=== PATIENT | female | born 1955 | race Caucasian/White ===

== ENCOUNTER 2021-01-21 14:50 | Outpatient (CLI) | payer MEDICARE, SELFPAY ==
--- NOTE | 2021-01-21 15:00 | XR_ITS ---
WS: [id number] LEFT HIP HISTORY: chronic left hip pain COMPARISON: None available. LEFT hip: No acute fracture or dislocation. Mild diffuse joint space narrowing with osteophytic ridgi ng around the acetabulum. Sclerotic changes on both sides of the inferior LEFT SI joint. XR/XR hip LT 2-3V wo/w pel* [id number] IMPRESSION: 1. No hip fracture. 2. Mild LEFT hip joint osteoarthritis.
== END 2021-01-21 14:51 | disposition home or self-care (01) ==
PROVIDERS: PCP Family Medicine; Visit Provider Family Medicine
DX: G89.29 Other chronic pain (principal); M16.12 Unilateral primary osteoarthritis, left hip
CPT/HCPCS: 73502

== ENCOUNTER 2021-03-18 12:33 | Outpatient (CLI) | payer MEDICARE, SELFPAY ==
--- NOTE | 2021-03-18 13:00 | MM_ITS ---
WS: [id number] BILATERAL SCREENING MAMMOGRAM WITH AMANDA DISPLACEMENT VIEWS. CAD PERFORMED. HISTORY: screening mammogram COMPARISON: None available. Bilateral craniocaudal and mediolateral like views are performed. Amanda displacement views in CC and MLO projection also performed. Breasts composition: There are scattered areas of fibroglandular density. Retropectoral implants are intact. There are bilateral benign calcifications within each breast. MM/[place] [id number] IMPRESSION: BI-RADS: 2-Benign FOLLOW-UP: 1 Year Follow-up
== END 2021-03-18 12:34 | disposition home or self-care (01) ==
LOC: RADSHAW 12:38
PROVIDERS: PCP Family Medicine; Visit Provider Family Medicine
DX: Z12.31 Encounter for screening mammogram for malignant neoplasm of breast (principal)
CPT/HCPCS: 77067

== ENCOUNTER 2021-03-26 16:04 | Emergency (ER) | payer MEDICARE, SELFPAY ==
[2021-03-26 16:34] VITALS: BP 166/87; PULSE 75; RESP 16; TEMP 36.7; O2SAT 97; BMI 23.9
--- NOTE | 2021-03-26 17:24 | ECG_ITS ---
[facility] Test Date: 2021-03-26 Pat Name: Shanon Pisano Department: Room: Gender: Female [address] [employer]: : 1955 Requested By: Anibal Nunez Order Number: [id number] Reading MD: JEN WAGNER Measurements Intervals [place] Rate: 69 P: 157 WV: 124 QRS: 178 QRSD: 85 T: 150 QT: 376 QTc: 403 Interpretive Statements ECTOPIC ATRIAL RHYTHM POSSIBLE RIGHT VENTRICULAR HYPERTROPHY [SOME/ALL OF: PROMINENT R IN V1, LATE TRANSITION, RAD, BENITO, SSS] INTERPRETATION BASED ON A DEFAULT AGE OF 40 YEARS No previous ECG available for comparison Electronically Signed On 03-28-2021 12:54:47 SOLAR PHOTOVOLTAIC DESIGNER by JEN WAGNER [id number]
--- NOTE | 2021-03-26 17:24 | CTR_ITS ---
PROCEDURE INFORMATION: Exam: CT Head Without Contrast Exam date and time: 03/26/2021 5:24 PM Age: 65 years old Clinical indication: Patient HX: C/O sudden onset dizziness; Additional info: Headache, acute onset, dizzieness TECHNIQUE: Imaging protocol: Computed tomography of the head without contrast. Total images: 210 Radiation optimization: All CT scans at this facility use at least one of these dose optimization techniques: automated exposure control; mA and/or kV adjustment per patient size (includes targeted exams where dose is matched to clinical indication); or iterative reconstruction. COMPARISON: No relevant prior studies available. RADIATION DOSE METRICS: Total DLP (mGy-cm): 880.46 FINDINGS: Brain: No evidence of active or acute intracranial pathologic process, hemorrhage, or trauma. No visible evidence of diffuse cerebral edema or generalized demyelination. No hyperdense MCA or insular ribbon sign. No mass effect. No midline shift. Cerebral ventricles: No ventriculomegaly. Paranasal sinuses: Visualized sinuses are unremarkable. No fluid levels. Mastoid air cells: Visualized mastoid air cells are well aerated. Bones/joints: Unremarkable. No acute fracture. Soft tissues: Unremarkable. CT/CT head wo con* [id number] IMPRESSION: No evidence of active or acute intracranial pathologic process, hemorrhage, or trauma. Radiation Dose CTDIVOL = (mGy): DLP = 880.46 (mGy-cm)
--- NOTE | 2021-03-26 17:33 | ED_ITS ---
Documented by User: AMIRAH Hale 03/26/21 21:15 HPI - Dizziness General: Chief Complaint: Dizziness Stated Complaint: DIZZY/HIGH BP/HEADACHE Time Seen by Provider: 03/26/21 17:18 History of Present Illness: HPI Narrative: Patient presents with dizziness and increased blood pressure that started today. Patient she had a sinus infection recently and finished antibiotics. Patient says that she standing kitchen sink and felt kind of dizzy sit down the table then she is felt a little bit detached from her body for little bit. She went and sat in the recliner for an hour or so. Still felt dizzy with standing up. She states her blood pressures for the last many years been about 90/60 today it went up to about 160/90. Patient states that she normally does not have headaches and she has 1 on the left side was a lot stronger earlier today but now feels much better she has neck pain and that is chronic due to having neck surgery and does have a plate for her cervical spine. She denies any weakness. She does have slight abdominal discomfort consistent with her history of colitis. Patient also does have history of vertigo but is been a while since she has had an attack. MD elicited complaint: lightheadedness Pertinent past history: other (Recent sinus infection) Onset (ago): hour(s) Timing: sudden onset Severity: mild Description: room spinning and lightheadedness Context: recent illness History of similar symptoms: No Exacerbating factors: movement/ambulation Relieving factors: remaining still Associated symptoms: Reports no associated symptoms and headache(s); Denies chest pain, chills, nausea, nasal congestion or vomiting Associated neuro symptoms: Reports no associated symptoms Review of Systems Const: Denies: fever(s), chills or body aches Eyes: Denies: change in vision or blurry vision ENMT: Denies: throat pain or nasal congestion Card: Denies: chest pain or dyspnea on exertion Resp: Denies: dyspnea, productive cough or non-productive cough GI: Reports: abdominal pain; Denies: nausea or vomiting Musc: Denies: extremity pain Skin/Breast: Denies: rash Neuro: Reports: headache(s) and dizziness Psych: Denies: anxiety or depression Ozzy/Lymph: Denies: easy bruising PFSH ED PFSH: Medical History Irritable bowel syndrome (IBS) Osteoporosis Surgical History History of breast augmentation History of carpal tunnel release bilateral History of hysterectomy leaving cervix intact TA History of neck surgery Family History Brother Cancer Mother Dementia Social History Smoking and tobacco status: former smoker Second hand smoke exposure: No Alcohol intake: current Alcohol intake frequency: few times a week Alcohol type: beer Desire information about alcohol rehabilitation?: No Desire information about substance/drug rehabilitation?: No Physical Exam Const: COMMON NORMALS: no acute distress, average body habitus and patient oriented x3 HENMT: COMMON NORMALS: normocephalic HEAD & SCALP: normal to inspection and normocephalic FACE & SINUS: normal facial exam Eye: COMMON NORMALS: conjunctivae normal GENERAL EYE: appearance normal, both eyes and all related structures CONJUNCTIVA: Yes conjunctivae normal Neck/C-Spine: COMMON NORMALS: no JVD Chest: COMMONS NORMALS: normal inspection of the chest Resp: COMMON NORMALS: normal respiratory effort and clear to auscultation bilaterally AUSCULTATION: clear to auscultation bilaterally Cardio: COMMON NORMALS: no JVD, regular rate and regular rhythm RATE: regular rate RHYTHM: regular rhythm GI: COMMON NORMALS: Normal to inspection, nondistended, normoactive bowel sounds present Extremity: COMMON NORMALS: normal to inspection and full ROM Neuro: COMMON NORMALS: patient oriented x3, CN's II-XII intact bilaterally and moves all extremities Course Vital Signs: Vital signs: Vital Signs Temperature 98.0 F 03/26/21 16:34 Pulse Rate 68 03/26/21 21:25 Respiratory Rate 18 03/26/21 21:25 Blood Pressure 151/69 03/26/21 21:25 Pulse Oximetry 97 03/26/21 21:25 MDM - Dizziness MDM Narrative: Medical decision making narrative: Patient presents with episode of lightheadedness today. And it continued throughout the afternoon. Patient was able ambulate without difficulty. CT the head negative laboratory studies were negative including cardiac enzyme. Patient given a liter of fluids. UA was negative. Discussed case Dr. Salvador. Patient was ambulated without difficulty, was lightheaded on initial rising from the bed after laying there for 3 hours but did okay throughout the walk without any unsteadiness. Patient was given clonidine to help bring blood pressure down last blood pressure 130/83. Patient given instructions how to monitor blood pressure how to take medication follow-up primary care provider. Lab Data: Labs: Lab Results 03/26/21 03/26/21 03/26/21 18:20 18:20 18:20 WBC 9.8 10^3/uL 10^3/ uL (4.0-10.0) RBC 4.51 10^6/uL 10^6 /uL (4.1-5.3) Hgb 14.7 g/dL g/dL (11.5-15.3) Hct 44.0 % % (37.0-47.0) MCV 97.6 fl fl (81-99) MCH 32.6 pg pg (28.0-34.0) MCHC 33.4 g/dL g/dL (30.0-36.0) RDW 11.7 % L % (12.1-15.1) Plt Count 300 10^3/cmm 10^3 /cmm (130-400) MPV 10.0 fL fL (7.4-10.4) Neut % (Auto) 64.4 % % Lymph % (Auto) 23.4 % % [place] % (Auto) 7.6 % % Eos % (Auto) 3.9 % % Baso % (Auto) 0.4 % % Neut # (Auto) 6.34 10^3/uL 10^3 /uL (1.8-7.7) Lymph # (Auto) 2.3 10^3/uL 10^3/ uL (0.8-4.8) [place] # (Auto) 0.8 10^3/uL 10^3/ uL (0.2-0.9) Eos # (Auto) 0.4 10^3/uL 10^3/ uL (0.0-0.8) Baso # (Auto) 0.0 10^3/uL 10^3/ uL (0.0-0.1) Nucleated RBC % (a uto) 0 % % Nucleated RBCs # 0.0 /100WBC /100W BC PT 14.60 SECONDS SEC ONDS (12.1-14.9) INR 1.10 (0.8-1.2) Sodium 139 mmol/L mmol/L (136-145) Potassium 4.0 mmol/L mmol/L (3.5-5.1) Chloride 102 mmol/L mmol/L (98-107) Carbon Dioxide 23 mmol/L mmol/L (22-29) Anion Gap 18.0 (5-19) BUN 20 mg/dL mg/dL (8-23) Creatinine 0.7 mg/dL mg/dL (0.5-0.9) GFR Calculation 83.7 mL/min L mL/ min (90-130) Glucose 81 mg/dL mg/dL (65-115) Calculated Osmolal ity 290 mOsm/kg mOsm/ kg (285-295) Calcium 9.0 mg/dL mg/dL (8.5-10.5) Total Bilirubin 0.2 mg/dL mg/dL (0.15-1.2) AST 17 U/L U/L (0-32) ALT 15 U/L U/L (0-33) Alkaline Phosphata se 72 IU/L IU/L (35-105) Troponin T Baselin e Troponin T 120 Min [place] Troponin T Total Protein 6.4 g/dL L g/dL (6.6-8.7) Albumin 4.4 g/dL g/dL (3.5-5.2) Globulin 2.0 g/dL g/dL (1.3-4.6) Lipase 44 U/L U/L (13-60) Urine Color Urine Appearance Urine pH Ur Specific Gravit y Urine Protein Urine Glucose (UA) Urine Ketones Urine Blood Urine Nitrate Urine Bilirubin Urine Urobilinogen Ur Leukocyte Gisela ase 03/26/21 03/26/21 03/26/21 18:20 18:34 20:12 WBC RBC Hgb Hct MCV MCH MCHC RDW Plt Count MPV Neut % (Auto) Lymph % (Auto) [place] % (Auto) Eos % (Auto) Baso % (Auto) Neut # (Auto) Lymph # (Auto) [place] # (Auto) Eos # (Auto) Baso # (Auto) Nucleated RBC % (a uto) Nucleated RBCs # PT INR Sodium Potassium Chloride Carbon Dioxide Anion Gap BUN Creatinine GFR Calculation Glucose Calculated Osmolal ity Calcium Total Bilirubin AST ALT Alkaline Phosphata se Troponin T Baselin e 7 ng/L ng/L (0-10) Troponin T 120 Min [place] 6.00 ng/L ng/L (0-10) Delta Troponin T -1.00 ABS# L ABS# (0-10) Total Protein Albumin Globulin Lipase Urine Color Yellow (Yellow) Urine Appearance Clear (CLEAR) Urine pH 6 (5-7) Ur Specific Gravit y 1.005 (1.005-1.030) Urine Protein Neg (Negative) Urine Glucose (UA) Norm (Normal) Urine Ketones Negative (Negative) Urine Blood Neg (Negative) Urine Nitrate Negative (Negative) Urine Bilirubin Neg (Negative) Urine Urobilinogen Norm mg/dL mg/dL (Negative) Ur Leukocyte Gisela ase Negative (Negative) Discharge Plan Discharge Patient Disposition: Home Clinical Impression: Light-headed feeling Hypertension Qualifiers: Hypertension type: primary hypertension Qualified Code(s): I10 - Essential (primary) hypertension Condition: Stable Prescriptions: New lisinopril 5 mg tablet 5 mg PO DAILY Qty: 14 RF: 0 No Action omeprazole 20 mg capsule,delayed release(DR/EC) 20 mg PO DAILY Qty: 90 RF: 0 doxycycline hyclate 100 mg capsule 100 mg PO BID 7 Days Qty: 14 RF: 0 meloxicam [Mobic] 15 mg tablet 15 mg PO DAILY 90 Days Qty: 90 RF: 0 Discharge Orders: Discharge ED (Routine); Ordered 03/26/21 Ordered By: Anibal Nunez Referrals: Edith Davila DO [Primary Care Provider] - Discharge Diet: Usual diet Discharge Activity: Increase activity as tolerated Patient Instructions: Chronic Hypertension (ED) Activity Restrictions/Additional Instructions: Follow-up with medical provider as directed. Take medications as prescribed. Return to the ER or your medical provider if condition worsens. Please read and understand discharge instructions. If any questions ask please. I suggest that you check your blood pressure twice daily before starting medication for the next 2 to 3 days and do your blood pressure checks at same time every day. If blood pressure is elevated above 140/90 I recommend that you go and take your medication and continue take your blood pressures and see your primary care prov ider in the next week or 2. Coding Level of Care Code ED Chair for Yag Fwd Exam Comprehensive Documented by User: Juan Mondragon MD 03/31/21 00:35 HPI - Dizziness General: Chief Complaint: Dizziness Stated Complaint: DIZZY/HIGH BP/HEADACHE Time Seen by Provider: 03/26/21 17:18 PFS ED PFSH: Medical History Irritable bowel syndrome (IBS) Osteoporosis Surgical History History of breast augmentation History of carpal tunnel release bilateral History of hysterectomy leaving cervix intact TA History of neck surgery Family History Brother Cancer Mother Dementia Social History Smoking and tobacco status: former smoker Second hand smoke exposure: No Alcohol intake: current Alcohol intake frequency: few times a week Alcohol type: beer Desire information about alcohol rehabilitation?: No Desire information about substance/drug rehabilitation?: No Course Vital Signs: Vital signs: Vital Signs Temperature 98.0 F 03/26/21 16:34 Pulse Rate 68 03/26/21 21:25 Respiratory Rate 18 03/26/21 21:25 Blood Pressure 151/69 03/26/21 21:25 Pulse Oximetry 97 03/26/21 21:25 MDM - Dizziness MDM Narrative: Medical decision making narrative: I discussed this case with Anibal Nunez TELEMETRY RN. I evaluated the patient just prior to discharge, she did have improvement in symptoms. I have reviewed documentation, labs, imaging. Juan Mondragon MD Emergency Medicine Lab Data: Labs: Lab Results 03/26/21 03/26/21 03/26/21 18:20 18:20 18:20 WBC 9.8 10^3/uL 10^3/ uL (4.0-10.0) RBC 4.51 10^6/uL 10^6 /uL (4.1-5.3) Hgb 14.7 g/dL g/dL (11.5-15.3) Hct 44.0 % % (37.0-47.0) MCV 97.6 fl fl (81-99) MCH 32.6 pg pg (28.0-34.0) MCHC 33.4 g/dL g/dL (30.0-36.0) RDW 11.7 % L % (12.1-15.1) Plt Count 300 10^3/cmm 10^3 /cmm (130-400) MPV 10.0 fL fL (7.4-10.4) Neut % (Auto) 64.4 % % Lymph % (Auto) 23.4 % % [place] % (Auto) 7.6 % % Eos % (Auto) 3.9 % % Baso % (Auto) 0.4 % % Neut # (Auto) 6.34 10^3/uL 10^3 /uL (1.8-7.7) Lymph # (Auto) 2.3 10^3/uL 10^3/ uL (0.8-4.8) [place] # (Auto) 0.8 10^3/uL 10^3/ uL (0.2-0.9) Eos # (Auto) 0.4 10^3/uL 10^3/ uL (0.0-0.8) Baso # (Auto) 0.0 10^3/uL 10^3/ uL (0.0-0.1) Nucleated RBC % (a uto) 0 % % Nucleated RBCs # 0.0 /100WBC /100W BC PT 14.60 SECONDS SEC ONDS (12.1-14.9) INR 1.10 (0.8-1.2) Sodium 139 mmol/L mmol/L (136-145) Potassium 4.0 mmol/L mmol/L (3.5-5.1) Chloride 102 mmol/L mmol/L (98-107) Carbon Dioxide 23 mmol/L mmol/L (22-29) Anion Gap 18.0 (5-19) BUN 20 mg/dL mg/dL (8-23) Creatinine 0.7 mg/dL mg/dL (0.5-0.9) GFR Calculation 83.7 mL/min L mL/ min (90-130) Glucose 81 mg/dL mg/dL (65-115) Calculated Osmolal ity 290 mOsm/kg mOsm/ kg (285-295) Calcium 9.0 mg/dL mg/dL (8.5-10.5) Total Bilirubin 0.2 mg/dL mg/dL (0.15-1.2) AST 17 U/L U/L (0-32) ALT 15 U/L U/L (0-33) Alkaline Phosphata se 72 IU/L IU/L (35-105) Troponin T Baselin e Troponin T 120 Min [place] Troponin T Total Protein 6.4 g/dL L g/dL (6.6-8.7) Albumin 4.4 g/dL g/dL (3.5-5.2) Globulin 2.0 g/dL g/dL (1.3-4.6) Lipase 44 U/L U/L (13-60) Urine Color Urine Appearance Urine pH Ur Specific Gravit y Urine Protein Urine Glucose (UA) Urine Ketones Urine Blood Urine Nitrate Urine Bilirubin Urine Urobilinogen Ur Leukocyte Gisela ase 03/26/21 03/26/21 03/26/21 18:20 18:34 20:12 WBC RBC Hgb Hct MCV MCH MCHC RDW Plt Count MPV Neut % (Auto) Lymph % (Auto) [place] % (Auto) Eos % (Auto) Baso % (Auto) Neut # (Auto) Lymph # (Auto) [place] # (Auto) Eos # (Auto) Baso # (Auto) Nucleated RBC % (a uto) Nucleated RBCs # PT INR Sodium Potassium Chloride Carbon Dioxide Anion Gap BUN Creatinine GFR Calculation Glucose Calculated Osmolal ity Calcium Total Bilirubin AST ALT Alkaline Phosphata se Troponin T Baselin e 7 ng/L ng/L (0-10) Troponin T 120 Min [place] 6.00 ng/L ng/L (0-10) Delta Troponin T -1.00 ABS# L ABS# (0-10) Total Protein Albumin Globulin Lipase Urine Color Yellow (Yellow) Urine Appearance Clear (CLEAR) Urine pH 6 (5-7) Ur Specific Gravit y 1.005 (1.005-1.030) Urine Protein Neg (Negative) Urine Glucose (UA) Norm (Normal) Urine Ketones Negative (Negative) Urine Blood Neg (Negative) Urine Nitrate Negative (Negative) Urine Bilirubin Neg (Negative) Urine Urobilinogen Norm mg/dL mg/dL (Negative) Ur Leukocyte Gisela ase Negative (Negative) Discharge Plan Discharge Patient Disposition: Home Clinical Impression: Light-headed feeling Hypertension Qualifiers: Hypertension type: primary hypertension Qualified Code(s): I10 - Essential (primary) hypertension Condition: Stable Prescriptions: New lisinopril 5 mg tablet 5 mg PO DAILY Qty: 14 RF: 0 No Action omeprazole 20 mg capsule,delayed release(DR/EC) 20 mg PO DAILY Qty: 90 RF: 0 doxycycline hyclate 100 mg capsule 100 mg PO BID 7 Days Qty: 14 RF: 0 meloxicam [Mobic] 15 mg tablet 15 mg PO DAILY 90 Days Qty: 90 RF: 0 Discharge Orders: Discharge ED (Routine); Ordered 03/26/21 Ordered By: Anibal Nunez Referrals: Edith Davila DO [Primary Care Provider] - Discharge Diet: Usual diet Discharge Activity: Increase activity as tolerated Patient Instructions: Chronic Hypertension (ED) Activity Restrictions/Additional Instructions: Follow-up with medical provider as directed. Take medications as prescribed. Return to the ER or your medical provider if condition worsens. Please read and understand discharge instructions. If any questions ask please. I suggest that you check your blood pressure twice daily before starting medication for the next 2 to 3 days and do your blood pressure checks at same time every day. If blood pressure is elevated above 140/90 I recommend that you go and take your medication and continue take your blood pressures and see your primary care provider in the next week or 2. Coding Level of Care Code ED Chair for Lupillo Fwkenia Exam Comprehensive
[2021-03-26] MEDS: sodium chloride 0.9% 1,000 ML 999 ML IV (18:31)
[2021-03-26 18:35] LABS: Basophils % 0.4 %; Eosinophils # 0.4 10^3/uL (0.0-0.8); Eosinophils % 3.9 %; Hemoglobin 14.7 g/dL (11.5-15.3); Lymphocytes # 2.3 10^3/uL (0.8-4.8); Lymphocytes % 23.4 %; Mean Corpuscular HGB Conc 33.4 g/dL (30.0-36.0); Mean Corpuscular Hemoglobin 32.6 pg (28.0-34.0); Mean Corpuscular Volume 97.6 fl (81-99); Monocytes # 0.8 10^3/uL (0.2-0.9); Monocytes % 7.6 %; Neutrophils # 6.34 10^3/uL (1.8-7.7); Neutrophils % 64.4 %; Nucleated Red Blood Cells % 0 %; Platelet Count 300 10^3/cmm (130-400); Red Blood Count 4.51 10^6/uL (4.1-5.3); Red Cell Distribution Width 11.7 % (12.1-15.1); White Blood Count 9.8 10^3/uL (4.0-10.0)
[2021-03-26 18:51] LABS: Alanine Aminotransferase 15 U/L (0-33); Albumin Level 4.4 g/dL (3.5-5.2); Alkaline Phosphatase 72 IU/L (35-105); Aspartate Amino Transferase 17 U/L (0-32); Blood Urea Nitrogen 20 mg/dL (8-23); Carbon Dioxide 23 mmol/L (22-29); Chloride 102 mmol/L (98-107); Creatinine Clr Calc Pharmacy 61.0807; Glomerular Filtration Rate 83.7 mL/min (90-130); Glucose 81 mg/dL (65-115); Lipase 44 U/L (13-60); Osmolality Calculated 290 mOsm/kg (285-295); Sodium 139 mmol/L (136-145); Total Bilirubin 0.2 mg/dL (0.15-1.2); Total Protein 6.4 g/dL (6.6-8.7)
[2021-03-26 19:02] LABS: Troponin(5th) Baseline 7 ng/L (0-10)
[2021-03-26 19:35] LABS: Add Urine Microscopic? NO; Charge for UA Resulting for Rev
[2021-03-26 19:42] LABS: Bilirubin Urine Neg (Negative); Blood Urine Neg (Negative); Glucose Urine UA Norm (Normal); Ketones Urine Negative (Negative); Leukocyte Esterase Urine Negative (Negative); Nitrate Urine Negative (Negative); Protein Urine Neg (Negative); Specific Gravity, Urine 1.005 (1.005-1.030); Urine Appearance Clear (CLEAR); Urine Color Yellow (Yellow); Urobilinogen Urine Norm (Negative); pH Urine 6 (5-7)
[2021-03-26 20:04] VITALS: BP 158/98
[2021-03-26] MEDS: cloNIDine 0.1 mg Tablet PO (20:04)
[2021-03-26 20:06] VITALS: BP 158/98; PULSE 95; RESP 14; O2SAT 97
--- NOTE | 2021-03-26 21:14 | PC.NURSE ---
Ambulated pt approx 40 feet per provider request. Pt admitted to still being light headed but took her time. Pt did not get unsteady on her feet.
[2021-03-26 21:25] VITALS: BP 151/69; PULSE 68; RESP 18; O2SAT 97
== END 2021-03-26 21:27 | disposition home or self-care (01) ==
PROVIDERS: Emergency Provider Nurse Practitioner Family; PCP Family Medicine
DX: R42 Dizziness and giddiness (principal); I10 Essential (primary) hypertension; Z87.891 Personal history of nicotine dependence
CPT/HCPCS: 36415; 70450; 80053; 81003; 83690; 84484; 85025; 85610; 93005; 96360; 99284; J7030

== ENCOUNTER → 2021-04-04 13:21 | Outpatient (BNVA) | payer MEDICARE, SELFPAY | PROVIDERS: PCP Family Medicine; Visit Provider Nurse Practitioner | DX: Z20.822 Contact with and (suspected) exposure to COVID-19 (principal); R50.9 Fever, unspecified | CPT/HCPCS: 87635 ==

== ENCOUNTER 2021-04-08 16:12 | Outpatient (CLI) | payer MEDICARE, SELFPAY ==
[2021-04-08 16:18] VITALS: BP 118/73; PULSE 67; RESP 20; TEMP 36.8; O2SAT 92
[2021-04-08 17:00] VITALS: BP 104/71; PULSE 86; RESP 18; TEMP 36.8; O2SAT 95
[2021-04-08 17:26] VITALS: BP 111/71; PULSE 82; RESP 16; TEMP 36.9; O2SAT 94; BMI 23.7
== END 2021-04-08 16:13 | disposition home or self-care (01) ==
LOC: OPS 16:16
PROVIDERS: PCP Family Medicine; Visit Provider Nurse Practitioner
DX: U07.1 COVID-19 (principal)
CPT/HCPCS: 96365

== ENCOUNTER → 2021-07-15 11:01 | Outpatient (BNVA) | payer MEDICARE, SELFPAY | PROVIDERS: PCP Family Medicine; Visit Provider Surgery | DX: Z20.822 Contact with and (suspected) exposure to COVID-19 (principal) | CPT/HCPCS: 87635 ==

== ENCOUNTER 2021-07-20 07:45 | Day surgery (SDC) | payer MEDICARE, SELFPAY ==
[2021-07-19 10:20] VITALS: BMI 24.4
--- NOTE | 2021-07-20 08:04 | ANES.PREANE2 ---
Pre-Anesthetic Assessment Height/Weight: Height 1.6 m Weight 62.596 kg Operation Date: 07/20/21 09:15 Proposed Procedures p EGD 01751/col 86481/R11.10 vomiting/K59.0 constipation(Not Applicable) - Jose G Davis MD s Colonoscopy(Not Applicable) - Jose G Davis MD Familial anesthetic complications: None Was Beta Gagan taken within 24 hours: N/A Was Clonidine taken within 24 hours: N/A Social No alcohol (Occasional/social) and No tobacco (h/o smoking) Exam alert, oriented x 3, clear to auscultation bilaterally and regular rate & rhythm Airway Submandibular: within normal limits Cervical ROM: within normal limits Mallampati: Class II Dentition: full Pulmonary Chronic Obstructive Pulmonary Disease GI gastritis Musc/skel Osteoarthritis/DJD Anesthetic Plan ASA status: 2 Anesthesia: MAC Medications/Allergies Home Medications Medication Instructions Recorded Confirmed Last Taken Type loratadine 10 mg tablet (Allergy 10 mg PO DAILY 04/01/21 07/19/21 Unknown History Relief (loratadine)) albuterol sulfate 90 mcg/actuation 2 puff INHALATION Q6H PRN #8.5 g 05/13/21 07/19/21 Unknown Rx aerosol inhaler (ProAir HFA) pantoprazole 40 mg tablet,delayed 40 mg PO DAILY #90 tab 05/13/21 07/19/21 Unknown Rx release (Protonix) lactulose 10 gram/15 mL oral 15 ml PO BID 7 Days #210 ml 06/21/21 07/19/21 Unknown Rx solution meloxicam 15 mg tablet 15 mg PO BEDTIME 07/19/21 07/19/21 Unknown History Allergies Allergy/AdvReac Type Severity Reaction Status Date / Time clindamycin Allergy ADR-Itching Verified 06/21/21 09:52 meperidine [From Demerol] Allergy ADR-Nausea Verified 06/21/21 09:52 Penicillins Allergy ALGY-Rash Verified 06/21/21 09:52 Sulfa (Sulfonamide Allergy ALGY-Rash Verified 06/21/21 09:52 Antibiotics) [facility] Anesthesia Medical History Irritable bowel syndrome (IBS) Osteoporosis Surgical History History of breast augmentation History of carpal tunnel release bilateral History of colonoscopy with polypectomy 2007,2014 History of esophagogastroduodenoscopy (EGD) 2014 History of hysterectomy leaving cervix intact TA History of neck surgery History of shoulder surgery left Family History Brother Cancer Mother Dementia Social History Smoking and tobacco status: former smoker Second hand smoke exposure: No Alcohol intake: current Alcohol intake frequency: few times a week Alcohol type: beer Desire information about alcohol rehabilitation?: No Desire information about substance/drug rehabilitation?: No Data Anesthesia Cardiac Studies: No Data to Display
[2021-07-20 08:33] VITALS: BP 136/92; PULSE 76; RESP 18; TEMP 36.1; O2SAT 98
[2021-07-20] MEDS: sodium chloride 0.9% 1,000 ML 30 ML IV (08:41)
--- NOTE | 2021-07-20 08:56 | W.PM.OPSFHP ---
Same Day Surgery H&P Indication for Procedure/HPI DATE OF PROCEDURE: July 20, 2021 CHIEF COMPLAINT/INDICATIONFOR SURGICAL PROCEDURE: colonoscopy PREOP DIAGNOSIS: diagnostic PLANNED PROCEDURE: Operation Date: 07/20/21 09:15 Proposed Procedures p EGD 50127/col 32142/R11.10 vomiting/K59.0 constipation(Not Applicable) - Jose G Davis MD s Colonoscopy(Not Applicable) - Jose G Davis MD Medications/Allergies* Home Medications Medication Instructions Recorded Confirmed Type loratadine 10 mg tablet (Allergy 10 mg PO DAILY 04/01/21 07/19/21 History Relief (loratadine)) meloxicam 15 mg tablet 15 mg PO BEDTIME 07/19/21 07/19/21 History Allergies/Adverse Reactions Allergy/AdvReac Type Severity Reaction Status Date / Time clindamycin Allergy ADR-Itching Verified 06/21/21 09:52 meperidine [From Demerol] Allergy ADR-Nausea Verified 06/21/21 09:52 Penicillins Allergy ALGY-Rash Verified 06/21/21 09:52 Sulfa (Sulfonamide Allergy ALGY-Rash Verified 06/21/21 09:52 Antibiotics) Current Medications: Generic Name Dose Route Start Last Admin Trade Name Freq PRN Reason Stop Dose Admin Sodium Chloride 1,000 mls @ 30 mls/hr 07/20/21 08:45 07/20/21 08:41 Sodium Chloride 0.9% IV 07/21/21 08:44 30 mls/hr .Q24H AYS Administration Pertinent History/Comorbid Conditions* Medical History (Updated 06/21/21 @ 10:46 by Jose G Davis MD) Irritable bowel syndrome (IBS) Osteoporosis Surgical History (Updated 06/21/21 @ 10:14 by Jose G Davis MD) History of breast augmentation History of carpal tunnel release bilateral History of colonoscopy with polypectomy 2007,2014 History of esophagogastroduodenoscopy (EGD) 2014 History of hysterectomy leaving cervix intact TA History of neck surgery History of shoulder surgery left Family History (Updated 11/08/20 @ 10:51 by Cortez Shi LPN) Dementia Mother Cancer Brother Social History Smoking and tobacco status: former smoker Second hand smoke exposure: No Alcohol intake: current Alcohol intake frequency: few times a week Alcohol type: beer Desire information about alcohol rehabilitation?: No Desire information about substance/drug rehabilitation?: No Pertinent Exam Findings alert, oriented x 3 and regular rate & rhythm Recommendations Surgery/Procedure today Coding Level of Care Code Acute District Administrative Assistant for Chg Emely
[2021-07-20 09:48] VITALS: BP 123/79; PULSE 85; RESP 16; TEMP 36.1; O2SAT 94
[2021-07-20 10:03] VITALS: BP 157/99; PULSE 73; RESP 18; O2SAT 97
--- NOTE | 2021-07-20 10:11 | ANE.PACU2 ---
Inpatient post-anesthesia follow up: Airway intact: Yes Vital signs: Temperature 97 F Pulse Rate 73 Respiratory Rate 18 Blood Pressure 157/99 Pulse Oximetry 97 Oxygen Delivery Me thod Room Air Oxygen Flow Rate Fraction of Inspir ed Oxygen Hydration adequate: Yes Nausea and vomiting: No Pain level: 1 Mental status: Baseline
== END 2021-07-20 10:18 | disposition home or self-care (01) ==
PROVIDERS: PCP Family Medicine; Visit Provider Surgery
PROC: 0DJ08ZZ Inspection of Upper Intestinal Tract, Via Natural or Artificial Opening Endoscopic (ICD-10-PCS; CPT 43235; principal; 2021-07-20 09:15)
PROC: 0DJD8ZZ Inspection of Lower Intestinal Tract, Via Natural or Artificial Opening Endoscopic (ICD-10-PCS; CPT 45378; 2021-07-20 09:15)
DX: K59.00 Constipation, unspecified (principal); R11.10 Vomiting, unspecified; K29.70 Gastritis, unspecified, without bleeding; M81.0 Age-related osteoporosis without current pathological fracture; Z87.891 Personal history of nicotine dependence; J44.9 Chronic obstructive pulmonary disease, unspecified; M19.90 Unspecified osteoarthritis, unspecified site
CPT/HCPCS: 43239; 45378; 88305; 88342; J2704; J7030

== ENCOUNTER → 2021-08-01 08:59 | Outpatient (BNVA) | payer MEDICARE, SELFPAY | PROVIDERS: PCP Family Medicine; Visit Provider Surgery | DX: K29.70 Gastritis, unspecified, without bleeding (principal); B96.81 Helicobacter pylori [H. pylori] as the cause of diseases classified elsewhere | CPT/HCPCS: 99212 ==

== ENCOUNTER 2021-08-26 14:48 | Outpatient (CLI) | payer MEDICARE, SELFPAY ==
[2021-08-26 16:01] LABS: Basophils # 0.1 10^3/uL (0.0-0.1); Basophils % 0.7 %; Eosinophils # 0.4 10^3/uL (0.0-0.8); Eosinophils % 3.8 %; Hematocrit 44.1 % (37.0-47.0); Hemoglobin 14.8 g/dL (11.5-15.3); Lymphocytes # 2.3 10^3/uL (0.8-4.8); Lymphocytes % 22.4 %; Mean Corpuscular HGB Conc 33.6 g/dL (30.0-36.0); Mean Corpuscular Hemoglobin 32.6 pg (28.0-34.0); Mean Corpuscular Volume 97.1 fl (81-99); Mean Platelet Volume 10.4 fL (7.4-10.4); Monocytes # 0.7 10^3/uL (0.2-0.9); Monocytes % 6.9 %; Neutrophils # 6.75 10^3/uL (1.8-7.7); Neutrophils % 65.9 %; Nucleated Red Blood Cells % 0 %; Platelet Count 303 10^3/cmm (130-400); Red Blood Count 4.54 10^6/uL (4.1-5.3); Red Cell Distribution Width 11.8 % (12.1-15.1); White Blood Count 10.2 10^3/uL (4.0-10.0)
[2021-08-26 16:06] LABS: Erythrocyte Sedimentation Rate 10 mm/hr (0-15)
[2021-08-26 16:38] LABS: Alanine Aminotransferase 32 U/L (0-33); Albumin Level 4.4 g/dL (3.5-5.2); Alkaline Phosphatase 84 IU/L (35-105); Anion Gap 17.8 (5-19); Aspartate Amino Transferase 25 U/L (0-32); Blood Urea Nitrogen 22 mg/dL (8-23); C Reactive Protein 5.2 mg/L (0.0-4.9); Calcium 9.7 mg/dL (8.5-10.5); Carbon Dioxide 24 mmol/L (22-29); Chloride 103 mmol/L (98-107); Glomerular Filtration Rate 71.8 mL/min (90-130); Glucose 91 mg/dL (65-115); Osmolality Calculated 295 mOsm/kg (285-295); Potassium 3.8 mmol/L (3.5-5.1); Sodium 141 mmol/L (136-145); Total Bilirubin 0.2 mg/dL (0.15-1.2); Total Protein 7.4 g/dL (6.6-8.7)
[2021-08-29 13:18] LABS: Cyclic Citrullinated Peptide <16 UNITS
[2021-08-29 17:42] LABS: Anti-Nuclear Antibody Screen NEGATIVE (NEGATIVE)
== END 2021-08-26 14:49 | disposition home or self-care (01) ==
PROVIDERS: PCP Family Medicine; Visit Provider Family Medicine
DX: M25.50 Pain in unspecified joint (principal)
CPT/HCPCS: 36415; 80053; 85025; 85651; 86038; 86140; 86200; 86431

== ENCOUNTER → 2021-09-05 12:07 | Outpatient (BNVA) | payer MEDICARE, SELFPAY | PROVIDERS: PCP Family Medicine; Visit Provider Family Medicine | DX: R50.9 Fever, unspecified (principal); W57.XXXA Bitten or stung by nonvenomous insect and other nonvenomous arthropods, initial encounter | CPT/HCPCS: 86618; 86666; 86757 ==

== ENCOUNTER 2021-09-25 09:16 | Emergency (ER) | payer MEDICARE, SELFPAY ==
[2021-09-25 09:24] VITALS: BP 128/79; PULSE 90; RESP 16; TEMP 36.8; O2SAT 93; BMI 23.9
--- NOTE | 2021-09-25 09:39 | XRR_ITS ---
PROCEDURE INFORMATION: Exam: XR Chest Exam date and time: 09/25/2021 10:01 AM Age: 65 years old Clinical indication: Cough TECHNIQUE: Imaging protocol: XR of the chest. Views: 1 view. COMPARISON: No relevant prior studies available. FINDINGS: Lungs: Multiple pulmonary nodules, likely calcified granulomas noted. No significant airspace consolidation concerning for pneumonia. Pleural spaces: No pneumothorax. No pleural effusion. Heart/Mediastinum: Calcified mediastinal and hilar lymph nodes identified. Bones/joints: Cervical spinal fixation hardware noted. XR/XR chest 1V portable [id number] IMPRESSION: 1. No acute cardiopulmonary abnormality identified. 2. Granulomatous disease
--- NOTE | 2021-09-25 09:40 | ECG_ITS ---
[facility] Test Date: 2021-09-25 Pat Name: Shanon Wu Department: Room: Gender: Female Life Coach: : 1955 Requested By: Rebecca Barger Order Number: [id number] Rocael MD: Landen Ness M.D. Measurements Intervals [place] Rate: 78 P: 30 IA: 143 QRS: 16 QRSD: 82 T: 45 QT: 364 QTc: 416 Interpretive Statements SINUS RHYTHM No previous ECG available for comparison Electronically Signed On 09-25-2021 20:26:43 CDT by Landen Ness M.D. [email or web address]
[2021-09-25] MEDS: sodium chloride 0.9% 1,000 ML 999 ML IV (09:49)
[2021-09-25] MEDS: dexamethasone 10 mg/mL INJ IVP (09:50)
[2021-09-25] MEDS: ketorolac 30 mg/mL INJ 15 MG IVP (09:50)
--- NOTE | 2021-09-25 09:51 | W.ED.WEAKNES ---
HPI - Weakness General: Chief complaint: Weakness Stated complaint: h/a; congestion; cp; difficulty breathing Time Seen by Provider: 09/25/21 09:35 Source: patient Mode of arrival: ambulatory Limitations: no limitations History of Present Illness: 65-year-old female who states that over the last week she has been having some cough nasal congestion and low-grade fevers. States that her congestion and cough is worsened and she is feeling more weak and tired and having general malaise. She denies any fevers she has had some mild shortness of breath she states that she just is getting weaker and weaker and is concerned she did have COVID back in March and states this feels similar. Associated symptoms: Reports fever(s); Denies chest pain, chills, dysuria, easy bruising, headache(s), nausea or vomiting Review of Systems Const: Reports: fever(s); Denies: chills, body aches or change in appetite Eyes: Denies: blurry vision or eye discomfort ENMT: Denies: throat pain or dental pain Card: Denies: chest pain Resp: Reports: non-productive cough; Denies: dyspnea GI: Denies: abdominal pain, nausea, vomiting or diarrhea : Denies: dysuria Musc: Denies: neck pain or back pain Skin/Breast: Denies: rash Neuro: Denies: headache(s) Psych: Denies: depression Ozzy/Lymph: Denies: easy bruising All/Imm: Denies: urticaria PFSH ED PFSH: Medical History Gastritis, Helicobacter pylori Irritable bowel syndrome (IBS) Osteoporosis Surgical History History of breast augmentation History of carpal tunnel release bilateral History of colonoscopy with polypectomy 2007,2014 History of esophagogastroduodenoscopy (EGD) 2015 History of hysterectomy leaving cervix intact TA History of neck surgery History of shoulder surgery left Family History Brother Cancer Mother Dementia Social History Smoking and tobacco status: former smoker Second hand smoke exposure: No Alcohol intake: current Alcohol intake frequency: few times a week Alcohol type: beer Desire information about alcohol rehabilitation?: No Desire information about substance/drug rehabilitation?: No Physical Exam Const: COMMON NORMALS: no acute distress, patient oriented x3 and healthy appearing HENMT: COMMON NORMALS: normocephalic and atraumatic HEAD & SCALP: normocephalic and atraumatic Eye: COMMON NORMALS: Equal, round and reactive pupils present and EOMs intact bilaterally PUPIL: Yes Equal, round and reactive pupils present Neck/C-Spine: COMMON NORMALS: full ROM and supple Chest: COMMONS NORMALS: normal inspection of the chest and normal palpation of entire chest wall Resp: COMMON NORMALS: normal respiratory effort, No retractions, No use of accessory muscles and clear to auscultation bilaterally AUSCULTATION: clear to auscultation bilaterally Cardio: COMMON NORMALS: regular rate, regular rhythm and No murmurs present (Cardio) RATE: regular rate RHYTHM: regular rhythm GI: COMMON NORMALS: Normal to inspection, nondistended, normoactive bowel sounds present, Soft to palpation, non-tender and no masses PALPATION: Yes Soft to palpation Extremity: COMMON NORMALS: normal to inspection and full ROM Neuro: COMMON NORMALS: patient oriented x3, moves all extremities and no focal motor deficits Psych: COMMON NORMALS: mental status grossly normal, Normal thought process present and cooperative THOUGHT PROCESS: Normal thought process present Skin: COMMON NORMALS: no rashes or lesions noted and no wounds GENERAL SKIN EXAM: no rashes or lesions noted Course Vital Signs: Vital signs: Vital Signs Temperature 97.2 F L 09/25/21 09:53 Pulse Rate 90 09/25/21 09:24 Respiratory Rate 18 09/25/21 09:53 Blood Pressure 148/84 09/25/21 09:53 Pulse Oximetry 93 09/25/21 09:53 MDM - Weakness Medical Decision Making Patient presents here with cough congestion with a likely bronchitis will start patient on Keflex patient given Decadron here no signs of large pneumonia blood work here is all normal she feels improved she is stable for discharge return if worsening. Lab Data : 09/25/21 09:35 09/25/21 10:55 Radiology Impressions Chest X-Ray 09/25/21 09:39 IMPRESSION: 1. No acute cardiopulmonary abnormality identified. 2. Granulomatous disease Laboratory Results WBC 10.4 10^3/uL (4.0-10.0) H 09/25/21 09:35 RBC 4.98 10^6/uL (4.1-5.3) 09/25/21 09:35 Hgb 15.9 g/dL (11.5-15.3) H 09/25/21 09:35 Hct 46.9 % (37.0-47.0) 09/25/21 09:35 MCV 94.2 fl (81-99) 09/25/21 09:35 MCH 31.9 pg (28.0-34.0) 09/25/21 09:35 MCHC 33.9 g/dL (30.0-36.0) 09/25/21 09:35 RDW 11.9 % (12.1-15.1) L 09/25/21 09:35 Plt Count 268 10^3/cmm (130-400) 09/25/21 09:35 MPV 10.4 fL (7.4-10.4) 09/25/21 09:35 Neut % (Auto) 71.6 % 09/25/21 09:35 Lymph % (Auto) 17.0 % 09/25/21 09:35 [place] % (Auto) 9.6 % 09/25/21 09:35 Eos % (Auto) 1.1 % 09/25/21 09:35 Baso % (Auto) 0.4 % 09/25/21 09:35 Neut # (Auto) 7.43 10^3/uL (1.8-7.7) 09/25/21 09:35 Lymph # (Auto) 1.8 10^3/uL (0.8-4.8) 09/25/21 09:35 [place] # (Auto) 1.0 10^3/uL (0.2-0.9) H 09/25/21 09:35 Eos # (Auto) 0.1 10^3/uL (0.0-0.8) 09/25/21 09:35 Baso # (Auto) 0.0 10^3/uL (0.0-0.1) 09/25/21 09:35 Nucleated RBC % (auto) 0 % 09/25/21 09:35 Nucleated RBCs # 0.0 /100WBC 09/25/21 09:35 Sodium 138 mmol/L (136-145) 09/25/21 10:55 Potassium 4.1 mmol/L (3.5-5.1) 09/25/21 10:55 Chloride 103 mmol/L (98-107) 09/25/21 10:55 Carbon Dioxide 25 mmol/L (22-29) 09/25/21 10:55 Anion Gap 14.1 (5-19) 09/25/21 10:55 BUN 16 mg/dL (8-23) 09/25/21 10:55 Creatinine 0.8 mg/dL (0.5-0.9) 09/25/21 10:55 GFR Calculation 71.8 mL/min (90-130) L 09/25/21 10:55 Glucose 93 mg/dL (65-115) 09/25/21 10:55 Calculated Osmolality 287 mOsm/kg (285-295) 09/25/21 10:55 Calcium 8.6 mg/dL (8.5-10.5) 09/25/21 10:55 Total Bilirubin 0.3 mg/dL (0.15-1.2) 09/25/21 10:55 AST 31 U/L (0-32) 09/25/21 10:55 ALT 35 U/L (0-33) H 09/25/21 10:55 Alkaline Phosphatase 75 IU/L (35-105) 09/25/21 10:55 Total Protein 6.6 g/dL (6.6-8.7) 09/25/21 10:55 Albumin 3.9 g/dL (3.5-5.2) 09/25/21 10:55 Globulin 2.7 g/dL (1.3-4.6) 09/25/21 10:55 Lipase 32 U/L (13-60) 09/25/21 09:35 SARS-CoV-2 Ag (Rapid) Negative (Negative) 09/25/21 09:45 EKG Data EKG 1: I personally reviewed and interpreted this EKG as follows: EKG interpretation date: 09/25/21 EKG interpretation time: 09:42 Interpretation: nsr hr [address] or t wave abnormalities qrs 82 qtc 397 Discharge Plan Discharge Patient Disposition: Home Clinical Impression: Bronchitis Condition: Stable Prescriptions: New cephalexin 500 mg capsule 500 mg PO TID 7 Days Qty: 21 0RF No Action loratadine [Allergy Relief (loratadine)] 10 mg tablet 10 mg PO DAILY 0RF albuterol sulfate [ProAir HFA] 90 mcg/actuation HFA aerosol inhaler 2 puff inhalation Q6H PRN (Reason: shortness of breath or wheezing) Qty: 8.5 0RF pantoprazole [Protonix] 40 mg tablet,delayed release (DR/EC) 40 mg PO DAILY Qty: 90 1RF amitriptyline 50 mg tablet 50 mg PO .hs Qty: 90 0RF meloxicam 15 mg tablet 15 mg PO BEDTIME 0RF Rx Instructions: TAKE 1 TABLET BY MOUTH EVERY DAY FOR PAIN Discharge Orders: Discharge ED (Routine); Ordered 09/25/21 Ordered By: Rebecca Barger Referrals: Edith Davila DO [Primary Care Provider] - 1-3 days Discharge Diet: Advance as tolerated Discharge Activity: Resume usual activity Patient Instructions: Bronchitis (Acute) - Adult Coding Level of Care Code ED Entry Table Operator for Chg Fwd Exam Comprehensive
[2021-09-25 09:53] VITALS: BP 148/84; RESP 18; TEMP 36.2; O2SAT 93
[2021-09-25 10:26] LABS: SARS Covid-2 Antigen Negative (Negative)
[2021-09-25 10:26] LABS: Lipase 32 U/L (13-60)
[2021-09-25 10:33] LABS: Basophils % 0.4 %; Eosinophils # 0.1 10^3/uL (0.0-0.8); Eosinophils % 1.1 %; Hematocrit 46.9 % (37.0-47.0); Hemoglobin 15.9 g/dL (11.5-15.3); Lymphocytes # 1.8 10^3/uL (0.8-4.8); Mean Corpuscular HGB Conc 33.9 g/dL (30.0-36.0); Mean Corpuscular Hemoglobin 31.9 pg (28.0-34.0); Mean Corpuscular Volume 94.2 fl (81-99); Mean Platelet Volume 10.4 fL (7.4-10.4); Monocytes % 9.6 %; Neutrophils # 7.43 10^3/uL (1.8-7.7); Neutrophils % 71.6 %; Nucleated Red Blood Cells % 0 %; Platelet Count 268 10^3/cmm (130-400); Red Blood Count 4.98 10^6/uL (4.1-5.3); Red Cell Distribution Width 11.9 % (12.1-15.1); White Blood Count 10.4 10^3/uL (4.0-10.0)
[2021-09-25 11:25] LABS: Alanine Aminotransferase 35 U/L (0-33); Albumin Level 3.9 g/dL (3.5-5.2); Alkaline Phosphatase 75 IU/L (35-105); Anion Gap 14.1 (5-19); Aspartate Amino Transferase 31 U/L (0-32); Blood Urea Nitrogen 16 mg/dL (8-23); Calcium 8.6 mg/dL (8.5-10.5); Carbon Dioxide 25 mmol/L (22-29); Chloride 103 mmol/L (98-107); Creatinine Clr Calc Pharmacy 61.0807; Globulin 2.7 g/dL (1.3-4.6); Glomerular Filtration Rate 71.8 mL/min (90-130); Glucose 93 mg/dL (65-115); Osmolality Calculated 287 mOsm/kg (285-295); Potassium 4.1 mmol/L (3.5-5.1); Sodium 138 mmol/L (136-145); Total Bilirubin 0.3 mg/dL (0.15-1.2); Total Protein 6.6 g/dL (6.6-8.7)
[2021-09-25 11:33] VITALS: BP 152/87; PULSE 81; RESP 18; TEMP 36.8; O2SAT 96
== END 2021-09-25 11:43 | disposition home or self-care (01) ==
PROVIDERS: Emergency Provider Emergency Medicine; PCP Family Medicine
DX: J40 Bronchitis, not specified as acute or chronic (principal); Z20.822 Contact with and (suspected) exposure to COVID-19; Z87.891 Personal history of nicotine dependence; Z86.16 Personal history of COVID-19
CPT/HCPCS: 71045; 80053; 83690; 85025; 87426; 93005; 96361; 96374; 96375; 99284; J1100; J1885; J7030

== ENCOUNTER → 2021-11-22 07:50 | Outpatient (BNVA) | payer MEDICARE, SELFPAY | PROVIDERS: PCP Family Medicine; Visit Provider Otolaryngology | DX: H90.0 Conductive hearing loss, bilateral (principal); H93.13 Tinnitus, bilateral; H61.23 Impacted cerumen, bilateral; Z87.891 Personal history of nicotine dependence | CPT/HCPCS: 69210; 99203 ==

== ENCOUNTER 2022-04-26 13:20 | Outpatient (CLI) | payer MEDICARE, SELFPAY ==
--- NOTE | 2022-04-26 13:31 | MM_ITS ---
WS: [id number] BILATERAL 3D TOMOSYNTHESIS DIGITAL SCREENING MAMMOGRAPHY WITH CAD CLINICAL INFORMATION: SCREENING HISTORY: Screening mammogram. No current complaints. COMPARISON: March 18, 2021 TECHNIQUE: Bilateral CC and MLO views. FINDINGS: Prior postoperative changes bilateral breast implants. Breast implants appear grossly intac t. The breasts are composed of heterogeneous fibroglandular density tissue, which can limit the detectio n of small underlying mass lesions. Clustered amorphous calcifications outer LEFT breast best visuali zed on the implant displaced views. Recommend spot magnification views in further evaluation. RIGHT breast is unremarkable. Punctate and lucent centered calcifications. MM/[id number] IMPRESSION: BI-RADS: 0-Incomplete: Need additional imaging evaluation FOLLOW UP: Need Additional Imaging Recommend LEFT breast spot magnification views of the outer breast calcificatio ns.
== END 2022-04-26 13:21 | disposition home or self-care (01) ==
LOC: RAD 13:23
PROVIDERS: PCP Family Medicine; Visit Provider Family Medicine
DX: Z12.31 Encounter for screening mammogram for malignant neoplasm of breast (principal)
CPT/HCPCS: 77063; 77067

== ENCOUNTER 2022-05-02 13:45 | Outpatient (CLI) | payer MEDICARE, SELFPAY ==
--- NOTE | 2022-05-02 14:09 | MM_ITS ---
WS: [id number] LEFT 3D TOMOSYNTHESIS DIGITAL MAMMOGRAPHY WITH CAD CLINICAL INFORMATION: ABNORMAL MAMMO CALC COMPARISON: April 26, 2022 TECHNIQUE: 3 views of the left breast were obtained. FINDINGS: Scattered fibroglandular densities of the left breast. Spot compression views demonstrate clustered p unctate calcifications upper outer LEFT breast. These are probably benign. Recommend 6 month follow-u p MM/[id number] IMPRESSION: BI-RADS: 3-Probably Benign FOLLOW UP: 6 Month Follow-up Recommend 6 month follow-up LEFT breast diagnostic mammography with spot magnif ication views.
== END 2022-05-02 13:46 | disposition home or self-care (01) ==
LOC: RAD 13:46
PROVIDERS: PCP Family Medicine; Visit Provider Family Medicine
DX: R92.8 Other abnormal and inconclusive findings on diagnostic imaging of breast (principal)
CPT/HCPCS: 77061; G0279

== ENCOUNTER → 2022-07-31 09:19 | Outpatient (BNVA) | payer MEDICARE, SELFPAY | PROVIDERS: PCP Family Medicine; Visit Provider Family Medicine | DX: I10 Essential (primary) hypertension (principal) | CPT/HCPCS: 80053; 80061; 84443; 85025 ==

== ENCOUNTER 2022-11-03 11:18 | Outpatient (CLI) | payer MEDICARE, SELFPAY ==
--- NOTE | 2022-11-03 11:22 | MM_ITS ---
WS: [id number] Left breast diagnostic 3D tomosynthesis digital mammogram, 11/03/2022 Clinical Data: Z12.31 - Encounter for screening mammogram for malignant ... Comparison: 05/02/2022, 04/26/2022, 03/17/2021 Findings: The left breast shows several benign calcifications. They have not changed. There are no clustered ca lcifications or spiculated masses. The augmentation mammoplasty is intact. There are no secondary sig ns of carcinoma. MM/[id number] Impression: 1. Benign calcifications left breast. 2. Intact augmentation mammoplasty. 3. Return to routine screening mammograms. BIRADS: 2-Benign FOLLOW UP: See Report The CAD seam checker was used.
== END 2022-11-03 11:19 | disposition home or self-care (01) ==
LOC: RAD 11:19
PROVIDERS: PCP Family Medicine; Visit Provider Family Medicine
DX: Z12.31 Encounter for screening mammogram for malignant neoplasm of breast (principal); R92.1 Mammographic calcification found on diagnostic imaging of breast; Z98.82 Breast implant status
CPT/HCPCS: 77061; G0279

== ENCOUNTER → 2023-05-25 13:24 | Outpatient (BNVA) | payer MEDICARE, SELFPAY | PROVIDERS: PCP Family Medicine Adult Medicine; Visit Provider Family Medicine Adult Medicine | DX: M77.8 Other enthesopathies, not elsewhere classified (principal); M25.512 Pain in left shoulder | CPT/HCPCS: 73030 ==

== ENCOUNTER → 2023-07-09 14:19 | Outpatient (BNVA) | payer MEDICARE, SELFPAY | PROVIDERS: PCP Family Medicine Adult Medicine; Referring Provider Family Medicine Adult Medicine; Visit Provider Specialist | DX: M77.8 Other enthesopathies, not elsewhere classified (principal) | CPT/HCPCS: 99204 ==

== ENCOUNTER 2023-08-13 14:34 | Outpatient (CLI) | payer MEDICARE, SELFPAY ==
--- NOTE | 2023-08-13 15:15 | MR_ITS ---
WS: [id number] MRI LEFT SHOULDER HISTORY: left shoulder pain COMPARISON: Radiographs 05/25/2023 TECHNIQUE: Multiplanar sequences of the shoulder joint are submitted. Mild AC joint arthritis. Very minimal downsloping of the acromion. Minimal subacromial impingement. T here is a very small amount of subacromial fluid. Very slight flattening of the supraspinatus tendon directly over the humeral head. No os acromion. Biceps tendon is in normal position. No rotator cuff muscle atrophy or edema. No tendon tear. No significant tendinopathy. There is very s light increased T2 signal along the bursal surface of the distal supraspinatus at the level of the mi ld subacromial impingement. No joint effusion. No labral tear. IMPRESSION: 1. No rotator cuff tear. No muscle atrophy or edema. 2. Mild subacromial impingement. There is a very small amount of subacromial fluid at the site of th e subacromial impingement along the bursal surface of the supraspinatus.. 3. No labral tear.
== END 2023-08-13 14:35 | disposition home or self-care (01) ==
LOC: RAD 14:35
PROVIDERS: PCP Family Medicine Adult Medicine; Visit Provider Specialist
DX: M77.8 Other enthesopathies, not elsewhere classified (principal); M25.512 Pain in left shoulder; M25.812 Other specified joint disorders, left shoulder
CPT/HCPCS: 73221